=== PATIENT | female | born 1965 | race Caucasian/White ===

== ENCOUNTER → 2022-06-13 | Outpatient (CLI) | payer MEDICAID, SELFPAY ==
--- NOTE | 2022-06-13 17:28 | RAD_ITS ---
EXAM: XR LUMBOSACRAL SPINE, 2 OR 3 VIEWS CLINICAL INDICATION: PAIN TECHNIQUE: Frontal and lateral views of the lumbar spine and sacrum. This report was created using [employer] report [employer] technology. COMPARISON: None. FINDINGS: VERTEBRAE: Moderate anterior spondylotic changes. No more than mild degenerative disease at any level. Preservation of the normal lumbar lordosis. No significant facet arthropathy. No pars defects or spondylolisthesis. No acute fracture. No other unusual lytic or sclerotic lesions of bone. DISC SPACES: No acute findings. Disc spaces are maintained. SOFT TISSUES: Surgical clips within the lower abdomen/pelvis and evidence of prior cholecystectomy. Soft tissues are otherwise unremarkable. GASTROINTESTINAL TRACT: Unremarkable as visualized. Included bowel gas pattern is non-obstructive. RAD/Lumbar Spine 2 or 3 Views IMPRESSION: Mild degenerative changes. No acute or healing fracture or malalignment. Electronically Signed: Kwadwo Laird MD at 5:02 EDT ,
--- NOTE | 2022-06-13 17:28 | RAD_ITS ---
EXAM: XR BILATERAL HIPS WITH PELVIS WHEN PERFORMED, 2 VIEWS CLINICAL INDICATION: PAIN TECHNIQUE: Frontal view of the bilateral hips with pelvis when performed. This report was created using [employer] report generation technology. COMPARISON: Lumbar spine radiographs of this date. FINDINGS: BONES/JOINTS: No acute fracture or dislocation. Hip joint spaces are preserved. SI joints are unremarkable. SOFT TISSUES: Numerous surgical clips are again noted within the pelvis. No soft tissue swelling or gas. VASCULATURE: Numerous calcified phleboliths are present within the pelvis. RAD/Hips B/L min 2 views w/ Pelvis IMPRESSION: No acute findings in the pelvis or bilateral hips. Electronically Signed: Ricardo Ambrose MD at 7:19 EDT ,
--- NOTE | 2022-06-13 17:30 | RAD_ITS ---
EXAM: XR CERVICAL SPINE, 3 VIEWS CLINICAL INDICATION: PAIN TECHNIQUE: Frontal, lateral and bilateral oblique views of the cervical spine. This report was created using [employer] report generation technology. COMPARISON: None. FINDINGS: VERTEBRAE: Cervical vertebrae demonstrate normal curvature and alignment except for slight degenerative posterior subluxation of C5 on C6. The odontoid is intact. Preserved vertebral body height. No acute fracture. No facet dislocation. No significant facet arthropathy. DISC SPACES: Degenerative disc space narrowing noted at the C5/6 and C6/7 levels, greater at C6/7, associated with marginal osteophytes and uncinate hypertrophy. Upper cervical disc spaces are preserved. SOFT TISSUES: Unremarkable. No prevertebral soft tissue widening. LUNG APICES: Visualized upper ribs are intact and the visualized upper lungs are clear. RAD/Cerv Spine 2 or 3 Views IMPRESSION: Lower cervical degenerative changes. No acute fracture identified. Electronically Signed: Ricardo Ambrose MD at 7:23 EDT ,
[2022-06-13 18:57] LABS: Amphetamine Urine VISTA NEGATIVE (<1000 ng/mL); Barbiturate Urine VISTA NEGATIVE (< 200 ng/mL); Benzodiazepine Urine VISTA NEGATIVE (< 200 ng/mL); Cocaine Urine VISTA NEGATIVE (< 300 ng/mL); Ecstacy Urine VISTA NEGATIVE (< 500 ng/mL); Methadone Urine VISTA NEGATIVE (< 300 ng/mL); PCP Urine VISTA NEGATIVE (< 25 ng/mL); THC Urine VISTA NEGATIVE (< 50 ng/mL); Vista UDS pH Range 5
== END | disposition home or self-care (01) ==
LOC: LAB 17:04
PROVIDERS: Referring Provider Anesthesiology Pain Medicine; Visit Provider Anesthesiology Pain Medicine
DX: F11.20 Opioid dependence, uncomplicated (principal); M50.30 Other cervical disc degeneration, unspecified cervical region; M51.37 Other intervertebral disc degeneration, lumbosacral region; M25.551 Pain in right hip; M25.552 Pain in left hip
CPT/HCPCS: 72040; 72100; 73521; 80307